=== PATIENT | male | born 1960 | race African-American/Black ===

== ENCOUNTER 2025-05-30 09:14 | Emergency (ER) | payer OTHER, MEDICAID ==
[~2025-05-30] VITALS: Ht 170.2 cm; Wt 90.0 kg
[2025-05-30 09:15] VITALS: O2SAT 99
[2025-05-30 09:37] LABS: BASOPHILS % 0.9 % (0.0-2.0); EOSINOPHILS % 3.0 % (0.0-5.0); HEMATOCRIT. 36.1 % (42.0-52.0); HEMOGLOBIN. 12.1 g/dL (14.0-18.0); LYMPHOCYTES % 17.6 % (20.0-50.0); MEAN PLATELET VOLUME 8.1 fl (7.4-10.4); MONOCYTES % 3.3 % (2.0-8.0); NEUTROPHILS % 75.2 % (40.0-76.0); PLATELET 395 x1000/uL (130-400); RED BLOOD CELL COUNT 3.68 mill/uL (4.7-6.1); RED CELL DISTRIBUTION WIDTH 16.4 % (11.6-14.6)
[2025-05-30 09:56] LABS: CREATININE 0.9 mg/dL (0.6-1.3); UREA NITROGEN BLOOD 11 mg/dL (9-23)
[2025-05-30 11:50] LABS: CLARITY URINE CLEAR (CLEAR); COLOR URINE YELLOW (YELLOW); GLUCOSE URINE TRACE (NEGATIVE); KETONES URINE NEGATIVE (NEGATIVE); LEUKOCYTE ESTERASE URINE NEGATIVE (NEGATIVE); NITRITE URINE NEGATIVE (NEGATIVE); OCCULT BLOOD URINE NEGATIVE (NEGATIVE); PH URINE 8.0 (4.5-8.0); PROTEIN URINE NEGATIVE (NEGATIVE); SPECIFIC GRAVITY URINE 1.013 (1.005-1.030); UROBILINOGEN URINE 1.0 E.U./dL (0.2-1.0)
[2025-05-30] MEDS ORDERED: TOPUD PO (12:09)
[2025-05-30] MEDS ORDERED: VISCOUS LIDOCAINE 2% 15 ML UDC MM ONE (12:15)
[2025-05-30] MEDS ORDERED: FAMOTIDINE 20MG TABLET PO ONE (12:15)
[2025-05-30] MEDS ORDERED: ONDANSETRON 4MG ODT PO ONE (12:15)
[2025-05-30] MEDS ORDERED: MAGNESIUM/ALUMINUM HYDROXIDE/SIMETHICONE 30ML UDC PO ONE (12:15)
[2025-05-30] MEDS ORDERED: BELLADONNA ALK/PHENOBARB 16.2MG/5ML ORAL SYR PO ONE (12:15)
[2025-05-30] MEDS: DICYCLOMINE HCL 10MG CAPSULE PO NR (12:29)
[2025-05-30] MEDS: FAMOTIDINE 20MG TABLET PO NR (12:29)
[2025-05-30] MEDS: MAGNESIUM/ALUMINUM HYDROXIDE/SIMETHICONE 30ML UDC PO NR (12:29)
[2025-05-30] MEDS: VISCOUS LIDOCAINE 2% 15 ML UDC MM NR (12:30)
[2025-05-30] MEDS: ONDANSETRON 4MG ODT PO NR (12:30)
[2025-05-30 12:34] VITALS: BP 165/70; PULSE 67; RESP 18; TEMP 36.8; O2SAT 99
[2025-05-30 12:50] LABS: MUCUS URINE TRACE /lpf (NONE/TRACE)
[2025-05-30 12:51] LABS: BACTERIA URINE NONE SEEN; RBC URINE NONE SEEN /hpf (0-2); SQUAMOUS EPITHELIAL CELL URINE RARE /lpf (RARE/1+); WBC URINE 0-2 /hpf (0-2)
== END 2025-05-30 14:38 | disposition home or self-care (01) ==
LOC: ER 09:14
DX: M47.22 Other spondylosis with radiculopathy, cervical region (principal); K21.9 Gastro-esophageal reflux disease without esophagitis; E11.9 Type 2 diabetes mellitus without complications
CPT/HCPCS: 99284; 70450; 80048; 81003; 85025; 36415; 72125; Q0162